=== PATIENT | female | born 1990 | race Caucasian/White ===

== ENCOUNTER 2022-11-18 07:40 | Emergency (ER) | payer BC ==
[2022-11-18 07:55] VITALS: BP 106/72; PULSE 69; RESP 20; TEMP 98.2; BMI 25.0
[2022-11-18] MEDS ORDERED: SODIUM CHLORIDE 1,000 ML IV STA (08:16)
[2022-11-18] MEDS ORDERED: ONDANSETRON 4 MG/2 ML VIAL IVPB ONE (08:16)
[2022-11-18] MEDS ORDERED: ONDANSETRON 4 MG/2 ML VIAL ONE (08:30)
[2022-11-18] MEDS ORDERED: ACETAMINOPHEN 1000 MG/100 ML BAG IVPB ONE (08:36)
[2022-11-18] MEDS ORDERED: ACETAMINOPHEN INJECTION 100 ML IVPB ONE (08:36)
[2022-11-18 08:39] LABS: HCG,QUALITATIVE URINE Negative
[2022-11-18 09:05] LABS: HEMOGLOBIN 14.4 G/dL (10.7-15.3); MCH 31.7 pg (25.7-33.7); MCHC 34.3 g/dl (32.0-36.0); MEAN CELL VOLUME 92.4 fl (80-96); MEAN PLT VOLUME 9.5 fl (7.5-11.1); PLATELET COUNT 254.3 10^3/uL (134-434); RBC 4.55 10^6/uL (3.60-5.2); RDW 13.4 % (11.6-15.6); WHITE BLOOD COUNT 16.5 10^3/uL (4.0-10.8)
[2022-11-18 09:13] LABS: ALBUMIN 4.5 g/dl (3.4-5.0); BILIRUBIN,TOTAL 0.3 mg/dl (0.2-1); CALCIUM 9.2 mg/dl (8.5-10); CREATININE 0.5 mg/dl (0.55-1.3); TOT PROT 7.6 g/dl (6.4-8.2)
[2022-11-18 10:22] LABS: EPITHELIAL CELLS FEW /hpf
[2022-11-18 12:02] LABS: PLATELET ESTIMATE ADEQUATE
== END 2022-11-18 10:31 | disposition home or self-care (01) ==
LOC: FER 07:40
PROC: 3E0333Z Introduction of Anti-inflammatory into Peripheral Vein, Percutaneous Approach (ICD-10-PCS; principal; 2022-11-18)
PROC: 3E033GC Introduction of Other Therapeutic Substance into Peripheral Vein, Percutaneous Approach (ICD-10-PCS; 2022-11-18)
PROC: 3E0337Z Introduction of Electrolytic and Water Balance Substance into Peripheral Vein, Percutaneous Approach (ICD-10-PCS; 2022-11-18)
DX: A09 Infectious gastroenteritis and colitis, unspecified (principal); B96.81 Helicobacter pylori [H. pylori] as the cause of diseases classified elsewhere
CPT/HCPCS: 36415; 80053; 81003; 81015; 83690; 84703; 85027; 99284-25